=== PATIENT | male | born 1975 ===

== ENCOUNTER 2023-08-21 21:08 | Emergency (ER) | payer SELFPAY ==
[~2023-08-21] VITALS: Ht 182.9 cm; Wt 84.1 kg
[2023-08-21 21:16] VITALS: BP 151/101; PULSE 89; RESP 14; TEMP 97.4; O2SAT 100
== END 2023-08-22 00:21 | disposition left against medical advice (07) ==
LOC: ER 21:09
DX: R42 Dizziness and giddiness (principal); R41.0 Disorientation, unspecified; M54.2 Cervicalgia; Z53.21 Procedure and treatment not carried out due to patient leaving prior to being seen by health care provider
CPT/HCPCS: L0172